=== PATIENT | male | born 1940 | race Caucasian/White ===

== ENCOUNTER 2020-01-15 10:37 | Outpatient (REF) | payer MEDICARE, OTHER, SELFPAY | END 2020-01-15 10:38 | disposition home or self-care (01) | LOC: HO.LAB 10:37 | PROVIDERS: Visit Provider Internal Medicine | DX: Z20.828 Contact with and (suspected) exposure to other viral communicable diseases (principal) | CPT/HCPCS: C9803; U0003 ==

== ENCOUNTER 2022-01-16 08:44 | Outpatient (REF) | payer MEDICARE, OTHER, SELFPAY | END 2022-01-16 08:45 | disposition home or self-care (01) | LOC: HO.SH 08:44 | PROVIDERS: Visit Provider Internal Medicine | DX: H90.3 Sensorineural hearing loss, bilateral (principal) | CPT/HCPCS: 92557; 92567 ==

== ENCOUNTER 2022-01-16 14:30 | Outpatient (REF) | payer MEDICARE, OTHER, SELFPAY ==
--- NOTE | 2022-01-16 16:07 | MHC.AU.HAS ---
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 Speech discrimination in quiet is 100% for the right ear and 96% for the left ear. Current personal amplification information, if applicable: NONE Summary: Adi experiences a fluctuating symptom of blocked ear sensation with decreased hearing ability, left ear greater than right. Binaural hearing aids are recommended due to the permanent severe high frequency hearing loss; however, the noted conductive components are likely related to the middle ear dysfunction. Medical consultation with ENT should be considered to determine if conductive components may resolve with treatment. Hearing Aid Prescription: Based on the individual?s shared listening needs, communication environments, dexterity, desire for connectivity, and personal preferences, the following prescription for amplification has been made: Right ear: Line Fixer: Phonak Model: Audeo P 70-R Battery Size: Rechargeable Color: Silver Alfaro Completions Manager: #2 Power Type of Dome: Open Left ear:Left ear prescription to be same as Right Hearing Aid above: Line Fixer: Phonak Model: Audeo P 70-R Battery Size: Rechargeable Color: Silver Alfaro Completions Manager: 2 Power Type of Dome: Open Plan of Care: Patient wishes to purchase hearing aids as prescribed Action Taken/Action Needed: Medical Clearance to be requested from PCP/ENT Hearing Instrument Fitting to be scheduled when materials arrive Primary Diagnosis: H90.3 Bilateral Sensorineural Hearing Loss Signature:Provider: Zeeshan Fair, CCC-A
--- NOTE | 2022-01-16 16:08 | MHC.AU.MED ---
Addendum entered and electronically signed by Devang Marmoleoj 02/08/22 16:06: Please note: Referring physician is Dr. Sammi Jarvis. Medical Clearance redirected to Adult Bernarda Orosco Original Note: Medical Clearance for Hearing Instrumentation Date: 01/16/22 Patient Name: Adi Judge Date of : 1940 Primary Care Provider: Referring Provider: Beth Cruz MD We have seen your patient on 01/16/22 and have determined that they are a candidate for amplification (See accompanying report). Specifically, they would benefit from: Hearing aid use in both ears There is a statute that addresses Medical Evaluation Requirements prior to fitting a patient with a hearing aid. According to [place] statute 265 CMR:6.03(1), (a) General. Except as provided in 265 CMR 6.03(1)(b), a hearing examiner shall not sell a hearing aid unless the prospective user has presented to the hearing examiner a written statement signed by a licensed physician that states that the patient's hearing loss has been medically evaluated and the patient may be considered a candidate for a hearing aid. The medical evaluation must have taken place within the preceding six months. Please note: Due to the [place] Statute referenced above, we cannot accept a signature other than that of a licensed physician. QUARRY SUPERVISOR DIMENSION STONE and PA signatures cannot be accepted. I am in agreement with the above recommendation. There is no medical contraindication for hearing instrumentation. Physician Signature Date Physician Name (Printed)
--- NOTE | 2022-01-18 08:27 | MHC.AU.MED ---
Medical Clearance for Hearing Instrumentation Date: 01/15/22 Patient Name: Adi Judge Date of : 1940 Primary Care Provider: Referring Provider: Beth Cruz MD We have seen your patient on 01/15/22 and have determined that they are a candidate for amplification (See accompanying report). Specifically, they would benefit from: Hearing aid use in both ears There is a statute that addresses Medical Evaluation Requirements prior to fitting a patient with a hearing aid. According to [place] statute 265 CMR:6.03(1), (a) General. Except as provided in 265 CMR 6.03(1)(b), a heat curer shall not sell a hearing aid unless the prospective user has presented to the heat curer a written statement signed by a licensed physician that states that the patient's hearing loss has been medically evaluated and the patient may be considered a candidate for a hearing aid. The medical evaluation must have taken place within the preceding six months. Please note: Due to the [place] Statute referenced above, we cannot accept a signature other than that of a licensed physician. TEACHER OF FAMILY AND CONSUMER SCIENCE and PA signatures cannot be accepted. I am in agreement with the above recommendation. There is no medical contraindication for hearing instrumentation. Physician Signature Date Physician Name (Printed)
--- NOTE | 2022-01-18 08:30 | MHC.AU.HAS ---
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 Speech discrimination in quiet is 100% for the right ear and 96% for the left ear. Current personal amplification information, if applicable: NONE Summary: Adi experiences a fluctuating symptom of blocked ear sensation with decreased hearing ability, left ear greater than right. Binaural hearing aids are recommended due to the permanent severe high frequency hearing loss; however, the noted conductive components are likely related to the middle ear dysfunction. Medical consultation with ENT should be considered to determine if conductive components may resolve with treatment. Hearing Aid Prescription: Based on the individual?s shared listening needs, communication environments, dexterity, desire for connectivity, and personal preferences, the following prescription for amplification has been made: Right ear: Mortgage Loan Closer: Phonak Model: Audeo P 70-R Battery Size: Rechargeable Color: Silver Alfaro Pleat Patternmaker: #2 Power Tubing: Type of Dome: Open Type of Mold: Left ear: Left ear prescription to be same as Right Hearing Aid above: Mortgage Loan Closer: Phonak Model: Audeo P 70-R Battery Size: Rechargeable Color: Silver Alfaro Pleat Patternmaker: 2 Power Tubing: Type of Dome: Open Type of Mold: Accessories/Assistive Technology Recommended: Plan of Care: Patient wishes to purchase hearing aids as prescribed Action Taken/Action Needed: Medical Clearance to be requested from PCP/ENT Hearing Instrument Fitting to be scheduled when materials arrive Comments: Primary Diagnosis: H90.3 Bilateral Sensorineural Hearing Loss Secondary Diagnosis: Signature: Student/Clinical Fellow: I have reviewed/agreed with student/fellow documentation: Provider: Zeeshan Fair, [facility]
== END 2022-01-16 14:31 | disposition home or self-care (01) ==
LOC: HO.HAP 14:30
PROVIDERS: Visit Provider Internal Medicine
DX: Z46.1 Encounter for fitting and adjustment of hearing aid (principal); H90.3 Sensorineural hearing loss, bilateral
CPT/HCPCS: 92590

== ENCOUNTER 2022-02-13 08:59 | Outpatient (REF) | payer SELFPAY ==
--- NOTE | 2022-02-13 09:06 | MHC.AU.NPS ---
PURCHASE AND SALE AGREEMENT Date of Fitting: End of Adjustment Period:30 days from fitting date Docketing Specialist: [facility] 3 YR Service Agreement? Opt In: expires? Following the expiration of [facility]s service agreement, charges for items and services are billed at the usual and customary rate. Payment is due at the time of service. ? (Initialed) Opt out: I understand by opting out of the service agreement I will be charged for any and all hearing aid related services obtained after the adjustment period.? (Initialed) Total Due at Fitting $? Includes any opted in hearing aid service agreement, earmolds and accessories Right Ear: Left Ear: Make, Model, Serial Number and Color: Phonak Audeo P70-R Silver Mckinney SN [id number] Make, Model, Serial Number and Color: Phonak Audeo P70-R Silver Mckinney SN [id number] Caser Up/Slim Tube: P Caser Up 4.0 2R Caser Up/Slim Tube: P Caser Up 4.0 2L Earmold/Dome/CShell/SlimTip: open dome Earmold/Dome/CShell/SlimTip: open Type of Wax Guard: CeruSheild Disk Type of Wax Guard: Cerusheild Disk Battery Size: Rechargeable Battery Size: Rechargeable Cleaning Professional Repair Warranty: 05/06/2025 Cleaning Professional Repair Warranty: 05/06/2025 Cleaning Professional Loss and Damage Warranty: 05/06/2025 Cleaning Professional Loss and Damage Warranty: 05/06/2025 [facility] Service Plan: [facility] Service Plan: Accessories/Assistive Technology: Pa Clinical Analyst Case Combi The following items that may be supplied at initial fitting are not included in any warranty or service package: ? Hearing aid batteries ($5), Wax Guard packages ($10) Per [place] regulations, during the 30-day adjustment period, the grid maker shall be able to cancel the purchase with a limited money back guarantee.? When a grid maker returns the hearing aid within the adjustment period, the seller shall be entitled to retain the charges for earmolds, services provided to fit the hearing aid; and any repair, remake or adjustment performed that is not contained within any other warranty of sale or service, not to exceed 20% of the purchase bowie. ? [facility]?s non-refundable portion of the process, not including earmolds, is the previously paid hearing aid evaluation and selection fee of $350. ? Hearing aids that are lost or damaged beyond repair cannot be returned for credit, and the grid maker is liable for the full purchase bowie. My signature below acknowledges that I have read and understand this hearing aid contract and have received the goods and services out lined above. ?Date? Home Address: ? This hearing aid will not restore normal hearing nor will it prevent further hearing loss. The sale of a hearing aid is restricted to those individuals who have obtained a medical evaluation from a licensed physician or financial operations consultant. A fully informed adult whose moravian or personal beliefs preclude consultation with a physician may waive the requirement of a medical evaluation. The exercise of such a waiver is not in your best health interest and its use is strongly discouraged. It is also required that a person under the age of eighteen years obtain an evaluation by an practice assistant in addition to the medical evaluation before a hearing aid can be sold to such person. Kraig Grayson,Title XV,Chapter 93:74 ?Base cost of hearing aid(s) includes the following one-time services during adjustment period: ? Pre-fitting programming ? Electroacoustic check ? Conformity Evaluation ? Hearing aid dispensing ? One adjustment period visit after fitting ? Instruction on use of devices ? Custom modifications to settings, fit ? As needed: Starter battery packs, wax guards, cleaning tools, case ? Pairing devices as needed
--- NOTE | 2022-02-13 12:06 | MHC.AU.HA2 ---
Hearing Instrument Fitting- Adult- Binaural Date of Visit: 02/13/22 Hearing Instruments Dispensed: Right Ear: Abe, Model, Color, Serial Number: Pa Rioseo P70-R Silver Mckinney SN [id number] Recreational Facilities Motel Manager Repair Warranty: 05/06/2025 Recreational Facilities Motel Manager Loss and Damage Warranty: 05/06/2025 [facility] Service Plan: None Battery Size: Rechargeable Encephalographer/Slim Tube: P Encephalographer #2 Earmold/Dome/CShell/SlimTip: Small Power Dome Type of Wax Guard: CeruSheild Disk Left Ear: Make, Model, Color, Serial Number: Pa Rioseo P70-R Silver Mckinney SN [id number] Recreational Facilities Motel Manager Repair Warranty: 05/06/2025 Recreational Facilities Motel Manager Loss and Damage Warranty: 05/06/2025 [facility] Service Plan: None Battery Size: Rechargeable Encephalographer/Slim Tube: P Encephalographer #2 Earmold/Dome/CShell/SlimTip: Small Power Dome Type of Wax Guard: Cerusheild Disk Accessories/Assistive Technology: Phonak Parts Counter Salesperson Case Combi Summary of Fitting: Patient fit today with binaural rechargeable hearing aids to better facilitate communication. Had to run feedback several times with different domes as the feedback test was significantly decreasing gain. Able to obtain good feedback test with small power domes for both ears; however, the domes must be placed correctly around the canal curves. Initially patient reported own voice very bothersome and aids much too loud despite changing acoustic parameters in [employer] prior to feedback test. Performed Real Ear measurements at 100% Phonak target which showed over-amplification and made adjustments to better meet real ear targets with patient reporting much improved comfort of sound. Activated volume control, no additional programs. Practiced removal and insertion of aids several times, practiced canopy stringer use, volume use, and changing wax guards. Patient doing well while in office. Discussed realistic expectations of aids, particularly as he adjusts to the new sounds and discussed need for every day, all day use of aids for best benefit. Patient paid $4103.00. Gave patient copies of Itemized Bill and Medical Clearance to send to insurance for reimbursement. Recommendations: Recommendations: Hearing instrument care and maintenance were discussed and practiced. See handouts for care/use instructions and battery information. A hearing instrument follow-up was scheduled. Recommendations (Other): Diagnosis Code(s):Primary Diagnosis: H90.3 Bilateral Sensorineural Hearing Loss Signature:Provider: Zeeshan Fair, CHAUN[facility]-A
== END 2022-02-13 09:00 | disposition home or self-care (01) ==
LOC: HO.HAP 08:59
PROVIDERS: Visit Provider Internal Medicine
DX: Z46.1 Encounter for fitting and adjustment of hearing aid (principal); H90.3 Sensorineural hearing loss, bilateral
CPT/HCPCS: V5261; V5299

== ENCOUNTER 2022-02-27 09:22 | Outpatient (REF) | payer SELFPAY | END 2022-02-27 09:23 | disposition home or self-care (01) | LOC: HO.HAP 09:22 | PROVIDERS: Visit Provider Internal Medicine | DX: Z13.89 Encounter for screening for other disorder (principal) ==